=== PATIENT | female | born 1970 | race Caucasian/White ===

== ENCOUNTER 2017-03-03 12:15 | Emergency (ER) | payer OTHER, BC ==
[~2017-03-03] VITALS: Ht 170.2 cm; Wt 86.2 kg
[2017-03-03] MEDS ORDERED: ZOFRAN ODT4 MG PO (12:47)
[2017-03-03] MEDS ORDERED: TIROSINT112 MCG PO (12:47)
[2017-03-03] MEDS ORDERED: NORCO 5-325 TA1 EACH PO (12:48)
[2017-03-03] MEDS ORDERED: PERCOCET 5-3251 EACH PO (14:31)
== END 2017-03-03 15:02 | disposition home or self-care (01) ==
LOC: ED 12:15
DX: K80.20 Calculus of gallbladder without cholecystitis without obstruction (principal); E66.9 Obesity, unspecified; Z79.899 Other long term (current) drug therapy; Z86.711 Personal history of pulmonary embolism; Z90.710 Acquired absence of both cervix and uterus; Z88.2 Allergy status to sulfonamides; Z88.1 Allergy status to other antibiotic agents
CPT/HCPCS: 80053; 85025; 96374; 99283; J1885